=== PATIENT | female | born 1960 | race Caucasian/White ===

== ENCOUNTER → 2025-06-06 | Outpatient (CLI) | payer BC, SELFPAY ==
--- NOTE | 2025-06-06 14:07 | XR_ITS ---
EXAMINATION: PA lateral chest 2 views TECHNIQUE: Upright PA lateral chest 2 views Date and time: June 06, 2025, 1417 hours INDICATIONS: Coughing 2 months. FINDINGS: Bronchitis versus early bronchopneumonia left base, obscuring detail left hemidiaphragm Right lung clear Normal heart size IMPRESSION: Bronchitis versus early bronchopneumonia left base
== END | disposition home or self-care (01) ==
PROVIDERS: PCP Internal Medicine; Referring Provider Internal Medicine; Visit Provider Internal Medicine
DX: R05.3 Chronic cough (principal)
CPT/HCPCS: 71046

== ENCOUNTER → 2025-08-11 | Outpatient (CLI) | payer BC, SELFPAY ==
--- NOTE | 2025-08-11 14:10 | XR_ITS ---
EXAMINATION: PA lateral chest 2 views TECHNIQUE: Upright PA lateral chest 2 views Date and time: August 11, 2025, 1435 hours INDICATIONS: Coughing congestion 2 months. FINDINGS: Accentuation basilar bronchovascular markings. No lobar pneumonia Normal heart size IMPRESSION: Mild bibasilar bronchitis pattern
== END | disposition home or self-care (01) ==
LOC: CDIM 14:04
PROVIDERS: PCP Internal Medicine; Referring Provider Internal Medicine; Visit Provider Internal Medicine
DX: R05.9 Cough, unspecified (principal); R09.89 Other specified symptoms and signs involving the circulatory and respiratory systems
CPT/HCPCS: 71046